=== PATIENT | female | born 1975 | race Caucasian/White ===

== ENCOUNTER 2021-02-04 09:43 | Outpatient (CLI) | payer BC | END 2021-02-04 09:44 | disposition home or self-care (01) | LOC: ULT 09:43 | PROVIDERS: ATTEND Internal Medicine Gastroenterology | DX: R74.8 Abnormal levels of other serum enzymes (principal); R63.4 Abnormal weight loss; Q96.9 Turner's syndrome, unspecified; K82.4 Cholesterolosis of gallbladder | CPT/HCPCS: 76705 ==

== ENCOUNTER 2021-04-14 15:29 | Outpatient (CLI) | payer BC ==
[2021-04-15 13:05] LABS: SARS-CoV-2 PCR by NAA Not Detected (NotDetected)
== END 2021-04-14 15:30 | disposition home or self-care (01) ==
LOC: LABBT 15:29
PROVIDERS: ATTEND Internal Medicine Gastroenterology
DX: Z01.812 Encounter for preprocedural laboratory examination (principal); R94.5 Abnormal results of liver function studies; R63.4 Abnormal weight loss; Q96.9 Turner's syndrome, unspecified; K82.4 Cholesterolosis of gallbladder; Z20.822 Contact with and (suspected) exposure to COVID-19
CPT/HCPCS: U0003; U0005

== ENCOUNTER 2021-04-17 07:57 | Day surgery (SDC) | payer BC ==
[2021-04-16 09:18] VITALS: BMI 21.6
[2021-04-17 08:44] LABS: #Eosinphils 0.1 thou/uL (0.0-0.7); #Lymphocytes 1.8 thou/uL (1.20-3.40); #Monocytes 0.8 thou/uL (0.11-0.59); #Neutrophils 4.6 thou/uL (1.40-6.50); %Basophils 0.5 % (0.0-1.0); %Eosinophils 0.8 % (0.0-10.0); %Lymphocytes 24.2 % (21.0-51.0); %Monocytes 11.4 % (0.0-10.0); %Neutrophils 63.1 % (42.0-75.0); Hemoglobin 13.4 g/dL (12.0-16.0); Mean Corpuscular HGB CONC 33.5 g/dL (32.0-36.0); Mean Corpuscular Hemoglobin 31.3 pg (27.0-31.0); Mean Corpuscular Volume 93.6 fL (78.0-98.0); Mean Platelet Volume 9.4 fL (7.4-10.4); Platelet Count 256 thou/uL (130-400); Red Blood Cell (RBC) Count 4.27 mill/uL (4.20-5.40); White Blood Cell (WBC) Count 7.3 thou/uL (4.8-10.8)
[2021-04-17 08:56] LABS: Prothrombin Time 12.8 sec (12.0-14.7)
[2021-04-17 08:57] LABS: PTT 29.5 sec (22.9-36.1)
[2021-04-17 09:25] VITALS: TEMP 98.4
[2021-04-17] MEDS ORDERED: Fentanyl 100 MCG/2 ML VIAL ONE (09:33)
[2021-04-17] MEDS ORDERED: Lidocaine 1% PF 5 ML VIAL ONE (09:33)
[2021-04-17] MEDS ORDERED: Sodium Bicarbonate 2.5 MEQ/5 ML VIAL ONE (09:33)
[2021-04-17] MEDS ORDERED: Midazolam HCl 2 mg/2 ml Vial ONE (09:33)
[2021-04-17] MEDS ORDERED: Acetaminophen 500 MG TAB ONE (10:52)
[2021-04-17 12:20] VITALS: BP 103/68
== END 2021-04-17 12:15 | disposition home or self-care (01) ==
LOC: ULT 07:57
PROVIDERS: ATTEND Internal Medicine Gastroenterology
PROC: 0FB23ZX Excision of Left Lobe Liver, Percutaneous Approach, Diagnostic (ICD-10-PCS; principal; 2021-04-17)
DX: R94.5 Abnormal results of liver function studies (principal); Z88.2 Allergy status to sulfonamides; Z79.899 Other long term (current) drug therapy
CPT/HCPCS: 47000; 76942; 85025; 85610; 85730; 88307; 88312; 88313; 88321; J2250; J3010

== ENCOUNTER 2021-06-23 09:21 | Outpatient (CLI) | payer BC ==
[2021-06-23] MEDS ORDERED: Magnevist 469MG/ML 20 ML VIAL ONE (10:49)
== END 2021-06-23 09:22 | disposition home or self-care (01) ==
LOC: BICMRI 09:21
PROVIDERS: ATTEND Internal Medicine Gastroenterology
DX: R94.5 Abnormal results of liver function studies (principal); K82.4 Cholesterolosis of gallbladder
CPT/HCPCS: 74183; A9579